=== PATIENT | male | born 1935 | race Caucasian/White ===

== ENCOUNTER 2019-06-01 01:22 | Emergency (ER) | payer MEDICARE, BC ==
--- NOTE | 2019-06-01 01:51 | NUR ---
BREAK RN: PT. HAD A [employer] CARD FOR GREGORIO PERKINS IN HIS POCKET. CALLED GREGORIO PERKINS AND WAS ABLE TO GET CONNECTED TO DAUGHTER "CURLY'S" ROOM. MESSAGE LEFT REQUESTING RETURN PHONE CALL. WILL ATTEMPT TO CALL BACK LATER. PT. A&O TO SELF ONLY. AMBULATES WITH STEADY GAIT. IN CLEAN CLOTHING AND APPEARS TO BE WELL TAKEN CARE OF. UNKNOWN MEDICAL HX OR BASELINE.
--- NOTE | 2019-06-01 02:03 | NUR ---
REPORT RECEIVED FROM TIGRE CHO. PLAN OF CARE DISCUSSED. PATIENT TO CT AT THIS TIME
[2019-06-01 02:21] LABS: BASOPHILS # (AUTO) 0.07 x10^3/uL (0-0.1); BASOPHILS % (AUTO) 1 % (0-1); EOSINOPHILS # (AUTO) 0.06 x10^3/uL (0-0.4); EOSINOPHILS % (AUTO) 1 % (1-7); LYMPHOCYTES # (AUTO) 1.49 x10^3/uL (1-3.4); LYMPHOCYTES % (AUTO) 16 % (22-44); MD NO; MEAN CORPUSCULAR HEMOGLOBIN 31.9 pg (27.5-34.5); MEAN CORPUSCULAR HGB CONC 33.4 g/dL (33.2-36.2); MEAN CORPUSCULAR VOLUME 95.3 fL (81-97); MEAN PLATELET VOLUME 8.3 fL (7.4-10.4); MONOCYTES # (AUTO) 0.63 x10^3/uL (0.2-0.8); MONOCYTES % (AUTO) 7 % (2-9); NEUTROPHILS # (AUTO) 6.95 x10^3/uL (1.8-6.8); NEUTROPHILS % (AUTO) 76 % (42-75); PLATELET COUNT 248 x10^3/uL (130-400); RED BLOOD COUNT 4.68 x10^6/uL (4.38-5.82); RED CELL DISTRIBUTION WIDTH 13.7 % (9.4-14.8)
[2019-06-01 02:33] LABS: ALANINE AMINOTRANSFERASE 35 U/L (12-78); ALBUMIN 3.6 g/dL (3.4-5.0); ANION GAP 4 mmol/L (5-15); CALCIUM 9.1 mg/dL (8.5-10.1); CHLORIDE 107 mmol/L (98-107); CREATININE 0.89 mg/dL (0.7-1.3)
[2019-06-01 02:38] LABS: ALKALINE PHOSPHATASE 103 U/L (45-117); BILIRUBIN,TOTAL 0.4 mg/dL (0.2-1.0); TOTAL PROTEIN 6.8 g/dL (6.4-8.2)
[2019-06-01 02:41] VITALS: BP 139/62
--- NOTE | 2019-06-01 02:49 | NUR ---
PER TIGRE BATEMAN, CIRCUS CIRCUS WAS CONTACTED AGAIN, STATES "TRANSFERRED TO SECURITY TO TRY AND LOCATE DAUGHTER OF PATIENT"
--- NOTE | 2019-06-01 02:54 | NUR ---
PER TIGRE BATEMAN, SPOUSE OF PATIENT WAS CONTACTED. SPOUSE OF PATIENT IS CURRENTLY ON HER WAY TO [facility]
[2019-06-01 03:06] LABS: MICROSCOPIC NOT IND
[2019-06-01 03:16] LABS: CULTURE INDICATED? NO
--- NOTE | 2019-06-01 03:40 | NUR ---
PATIENT AMBULATORY WITH STEADY GAIT TO DISCRGE ACCOMPANIED BY FAMILY.
== END 2019-06-01 03:29 | disposition home or self-care (01) ==
LOC: ED 03:13
DX: G30.1 Alzheimer's disease with late onset (principal); F02.81 Dementia in other diseases classified elsewhere, unspecified severity, with behavioral disturbance; R41.0 Disorientation, unspecified; I44.7 Left bundle-branch block, unspecified
CPT/HCPCS: 36415; 70450; 80053; 80307; 81003; 85025; 93005; 99284